=== PATIENT | female | born 1970 | race Caucasian/White ===

== ENCOUNTER 2020-01-01 12:10 | Inpatient (IN) ==
[2020-01-01] MEDS ORDERED: VANCOMYCIN PER PHARMACY IV ONE (13:02)
[2020-01-01] MEDS ORDERED: ONDANSETRON 4 MG/2 ML VIAL IV PRN ×4 (14:08→18:01)
[2020-01-01] MEDS ORDERED: traZODone HCL 50 MG TABLET PO PRN (14:08)
[2020-01-01] MEDS ORDERED: ZOLPIDEM 5 MG TABLET PO PRN (14:08)
[2020-01-01] MEDS ORDERED: ACETAMINOPHEN 325 MG TABLET PO PRN (14:08)
[2020-01-01] MEDS ORDERED: ALBUTEROL SULFATE 2.5 MG/3 ML NEBULIZER NEB PRN (14:08)
[2020-01-01] MEDS ORDERED: cefTRIAXone 2 GM in DEXTROSE 5% IN WATER 50 ML IV SCH (14:15)
[2020-01-01 14:46] LABS: Hematocrit 34.7 % (34.1-44.9); Hemoglobin 11.4 g/dL (11.2-15.7); Mean Cell Volume 86.3 fL (80.0-100.0); Mean Corpuscular HGB Conc 32.9 g/dL (31.0-36.0); Mean Platelet Volume 10.6 fL (7.4-10.4); Platelet Count 323 K/mcL (140-440); RBC 4.02 M/mcL (3.59-5.38); Red Cell Distribution Width 14.1 % (11.5-14.5); WBC 14.9 K/mcL (4.50-11.00)
[2020-01-01 14:53] LABS: Prothrombin Time 14.1 sec (11.9-14.5)
[2020-01-01] MEDS ORDERED: VANCOMYCIN 1,500 MG in 0.9 % SODIUM CHLORIDE 500 ML IV SCH (15:00)
[2020-01-01 15:05] LABS: HCG,Serum NEGATIVE <10 (<10 mIU/ml)
[2020-01-01 15:13] LABS: ALT/SGPT 10 U/l (0-40); AST/SGOT 14 U/l (0-37); Albumin 3.2 gm/dL (3.2-5.2); Albumin/Globulin Ratio 0.7 (1.0-2.3); Alkaline Phosphatase 99 U/L (39-117); Bilirubin,Total 0.9 mg/dL (0.0-1.0); Blood Urea Nitrogen 12 mg/dl (6-20); Calcium 8.8 mg/dl (8.6-10.4); Carbon Dioxide 21 mmol/L (22-30); Globulin 4.3 gm/dL (2.2-3.7); Glomerular Filtration Rate 114; Glucose 98 mg/dL (70-105)
[2020-01-01 15:19] LABS: Chloride 94 mmol/L (96-108)
[2020-01-01 15:28] LABS: Band Neutrophils % 4 % (0-10); Lymphocytes % 15 % (15-49); Monocytes % (Manual) 4 % (1-12); Platelet Estimate NORMAL (NORMAL); RBC Morphology NORMAL (NORMAL); Segmented Neutrophils % 77 % (38-78)
[2020-01-01 16:09] LABS: Appearance,Urine CLEAR; Bacteria,Urine 0 /hpf (0); Bilirubin,Urine NEG (NEG); Color,Urine YELLOW; Culture Indicated,Urine NO; Glucose,Urine (UA) NEGATIVE (NEG); Ketones,Urine 5/TR mg/dL (NEG); Leukocyte Esterase,Urine NEG /uL (NEG); Mucus,Urine FEW /hpf (0); Nitrate,Urine NEG (NEG); Protein,Urine 100 mg/dL (NEG); Specific Gravity,Urine 1.021 (1.000-1.035); Urine Blood >=1.0 mg/dL (<0.03); Urine RBC 97 /hpf (0-1); Urine Squamous Epithelial Cell 1 /hpf (0-4); Urine WBC 3 /hpf (0-4)
[2020-01-01 16:19] LABS: Amphetamine Screen,Urine SUSPECT POSITIVE (NONDETECTED); Barbiturate Screen,Urine NONE DETECTED (NONDETECTED); Benzodiazepines Screen,Urine NONE DETECTED (NONDETECTED); Cannabinoid Screen,Urine NONE DETECTED (NONDETECTED); Cocaine Screen,Urine NONE DETECTED (NONDETECTED); Opiate Screen,Urine NONE DETECTED (NONDETECTED); Oxycodone, Urine Screen NONE DETECTED (NONDETECTED); Phencyclidine Screen,Urine NONE DETECTED (NONDETECTED)
[2020-01-01] MEDS ORDERED: METOPROLOL TARTRATE 5 MG/5 ML VIAL IV ONE (16:31)
[2020-01-01] MEDS ORDERED: TRANEXAMIC ACID 1,000 MG/10 ML VIAL IV ONE ×2 (16:31→18:57)
[2020-01-01] MEDS ORDERED: DEXAMETHASONE 10 MG/ML VIAL IV ONE (16:31)
[2020-01-01] MEDS ORDERED: MIDAZOLAM 5 MG/5 ML VIAL IV ONE (16:31)
[2020-01-01] MEDS ORDERED: LIDOCAINE HCL/PF 100 MG/5 ML SYRINGE IV ONE (16:31)
[2020-01-01] MEDS ORDERED: ONDANSETRON 4 MG/2 ML VIAL IV ONE (16:31)
[2020-01-01] MEDS ORDERED: SUCCINYLCHOLINE 20 MG/ML ML IV ONE (16:31)
[2020-01-01] MEDS ORDERED: PROPOFOL 200 MG/20 ML VIAL IV ONE (16:31)
[2020-01-01] MEDS ORDERED: HYDROmorphone 1 MG/ML SYRINGE IV ONE (16:31)
[2020-01-01] MEDS ORDERED: fentaNYL 250 MCG/5 ML VIAL IV ONE (16:31)
[2020-01-01] MEDS ORDERED: KETAMINE 100 MG/ML ML IV ONE (16:31)
[2020-01-01] MEDS ORDERED: MEPERIDINE 25 MG/ML SYRINGE IV PRN (17:20)
[2020-01-01] MEDS ORDERED: NALOXONE HCL 0.4 MG/ML VIAL IV PRN (17:20)
[2020-01-01] MEDS ORDERED: PROMETHAZINE 25 MG/ML VIAL IV PRN (17:20)
[2020-01-01] MEDS ORDERED: ePHEDrine 50 MG/ML AMPUL IV PRN (17:20)
[2020-01-01] MEDS ORDERED: diphenhydrAMINE 50 MG/ML VIAL IV PRN (17:20)
[2020-01-01] MEDS ORDERED: IPRATROPIUM/ALBUTEROL 3 ML AMPUL.NEB NEB PRN (17:20)
[2020-01-01] MEDS ORDERED: FLUMAZENIL 0.1 MG/ML ML IV PRN (17:20)
[2020-01-01] MEDS ORDERED: METOPROLOL TARTRATE 5 MG/5 ML VIAL IV PRN (17:20)
[2020-01-01] MEDS ORDERED: ACETAMINOPHEN 1,000 MG/100 ML BOTTLE IV ONE (17:20)
[2020-01-01] MEDS ORDERED: ATROPINE SULFATE 0.4 MG/ML VIAL IV PRN (17:20)
[2020-01-01] MEDS ORDERED: HYDROmorphone 0.5 MG/0.5 ML SYRINGE IV PRN (17:20)
[2020-01-01] MEDS ORDERED: METHOCARBAMOL 1,000 MG/10 ML VIAL IV PRN (17:20)
[2020-01-01] MEDS ORDERED: fentaNYL 100 MCG/2 ML VIAL IV PRN (17:20)
[2020-01-01] MEDS ORDERED: LACTATED RINGERS 1,000 ML IV SCH (17:30)
[2020-01-01] MEDS ORDERED: IPRATROPIUM/ALBUTEROL 3 ML AMPUL.NEB NEB ONE (17:55)
[2020-01-01] MEDS ORDERED: MAGNESIUM HYDROXIDE 30 ML ORAL.SUSP PO PRN (18:01)
[2020-01-01] MEDS ORDERED: BENZOCAINE/MENTHOL 1 LOZENGE PO PRN (18:01)
[2020-01-01] MEDS ORDERED: FLEETS ADULT ENEMA PR PRN (18:01)
[2020-01-01] MEDS ORDERED: POLYETHYLENE GLYCOL 3350 17 GM PACKET PO PRN (18:01)
[2020-01-01] MEDS ORDERED: BUPIVACAINE 0.5% 50 ML VIAL IJ ONE (18:06)
[2020-01-01] MEDS ORDERED: TOBRAMYCIN SULFATE 1.2 GM VIAL TOPICAL ONE (18:06)
[2020-01-01] MEDS ORDERED: VANCOMYCIN 1 GM VIAL TOPICAL SCH (18:15)
[2020-01-01] MEDS ORDERED: GABAPENTIN 100 MG CAPSULE PO ONE ×2 (18:37→18:52)
[2020-01-01] MEDS ORDERED: LORazepam 2 MG/ML VIAL IV ONE (18:37)
[2020-01-01] MEDS ORDERED: ONDANSETRON 4 MG/2 ML VIAL ONE (18:37)
[2020-01-01] MEDS ORDERED: LORazepam 2 MG/ML VIAL ONE (18:39)
[2020-01-01] MEDS ORDERED: fentaNYL 100 MCG/2 ML VIAL IV ONE (18:40)
[2020-01-01] MEDS ORDERED: METHOCARBAMOL 1,000 MG/10 ML VIAL ONE (18:44)
[2020-01-01] MEDS: TRANEXAMIC ACID 1,000 MG/10 ML VIAL IV ONE ×2 (18:54→18:57)
[2020-01-01] MEDS: 0.9 % SODIUM CHLORIDE 1,000 ML IV SCH ×3 (19:47→22:46)
[2020-01-01] MEDS ORDERED: HYDROcodone/APAP 5/325MG TABLET PO ONE (21:12)
[2020-01-01] MEDS ORDERED: MELATONIN 3 MG TABLET PO ONE (21:12)
[2020-01-01] MEDS ORDERED: traZODone HCL 50 MG TABLET ONE (21:12)
--- NOTE | 2020-01-01 21:32 | Internal Med History&Physical ---
HPI History of Present Illness Patient information: Note initiated : 01/01/20 at 9:28 pm Service Date, if different from initiated Date: [] Patient: Lianet Jamison 49 y/o F admitted on 01/01/20 for Infected Left Knee. Chief Complaint: [] History of present illness: 49-year-old female with a history of bipolar disorder, chronic pain, tobacco dependence and osteoporosis status post knee replacement was brought to the hospital for septic arthritis of the left knee. Patient was evaluated at the clinic yesterday for swelling and redness of the left knee and joint aspiration was done and study showing evidence of septic arthritis. Orthopedic surgery planning to do a knee washout this afternoon and admitted her for potential IV antibiotics. Patient denied any features of sepsis no fever no chills. Patient was started on vancomycin and ceftriaxone during admission. Patient denied any history of cardiac disease or stroke or any cardiovascular events. She has history of bipolar disorder and takes her home medications. Constitutional Constitutional: Present chills, fatigue and weakness; Absent anorexia, excessive sweating, frequent falls and lethargy EENT Eyes: Absent discharge, floaters, irritation, loss of peripheral vision, loss of vision and photophobia Ears: Present as per HPI; Absent decreased hearing, ear pain and tinnitus Nose, mouth and throat: Absent change in voice, dizziness, epistaxis, mouth lesions and nasal discharge Cardiovascular Cardiovascular: Present leg edema; Absent acrocyanosis, chest pain with activity, diaphoresis, orthopnea, palpatations, pedal edema, radiating pain, slow heart rate and syncope Respiratory Respiratory: Present snoring; Absent cough, hemoptysis, dyspnea on exertion, chest congestion and pain with cough Gastrointestinal Gastrointestinal: Present heartburn; Absent abdominal pain, change in bowel habits, constipation and diarrhea Genitourinary Genitourinary: Absent change in urinary stream, difficulty voiding, dyspareunia, dysuria and genital lesions Musculoskeletal Musculoskeletal: Present as per HPI, abnormal gait, arthralgias, joint swelling, limited range of motion, myalgias and radiating pain into limb Neurological Neurological: Present abnormal gait; Absent abnormal movements, abnormal speech, burning sensations, confusion, disequilibrium and frequent falls Psychiatric Psychiatric: Present anxiety and mood swings; Absent confusion, depression, homicidal ideation, memory loss and suicidal ideation Endocrine Endocrine: Present fatigue; Absent cold intolerance, flushing, increase in ring/shoe/hat size and polyphagia PFSH PFSH Family History (Updated 01/01/20 @ 21:32 by Stefan Leal MD) Other Bipolar disorder Social History smoking status: Current every day smoker MEDS/ALLERGIES Home Medications and Allergies Home Medications Medication Instructions Recorded Confirmed Type escitalopram oxalate 20 mg PO DAILY 08/19/19 01/01/20 History lamotrigine 75 mg PO DAILY 08/19/19 01/01/20 History Allergies Allergy/AdvReac Type Severity Reaction Status Date / Time No Known Drug Allergies Allergy Unknown Verified 08/27/19 05:09 [NKDA] EXAM Constitutional Vitals: Temp Pulse Resp BP Pulse Ox 98.3 F 98 H 20 139/82 95 01/01/20 20:00 01/01/20 19:17 01/01/20 20:00 01/01/20 20:00 01/01/20 20:00 General appearance: cooperative, mild distress and obese Head Head exam: Present atraumatic, normal inspection and normocephalic Eye Eye exam: Present normal appearance; Absent EOMI, periorbital swelling and scleral icterus ENT ENT exam: Present normal exam, normal external ear exam and normal oropharynx Neck Neck exam: Present normal inspection; Absent lymphadenopathy and tenderness Respiratory Respiratory exam: Present CTAB; Absent accessory muscle use, decreased breath sounds, respiratory distress and wheezes Cardiovascular Cardiovascular exam: Present normal rate and rhythm; Absent bradycardia, gallop, +S3 and systolic murmur GI/Abdominal GI/Abdominal exam: Present soft and distended; Absent diminished bowel sounds, guarding and tenderness Extremities Exam Additional comments: Swelling and redness of the left knee with active and passive tenderness and range of motion is very limited other joints unremarkable Neurovascular intact Back Exam Back exam: Present normal inspection; Absent CVA tenderness (L), CVA tenderness (R), muscle spasm and tenderness Neurological Exam Neurological exam: Present alert, oriented X3 and reflexes normal; Absent motor sensory deficit Psychiatric Psychiatric exam: Present normal mood; Absent agitated, anxious, depressed, manic and suicidal ideation DATA Data Completed and Pending Labs on day of discharge: Labs from last 24 hours 01/01/20 01/01/20 01/01/20 15:30 15:30 13:59 WBC RBC Hgb Hct MCV MCH MCHC RDW Plt Count MPV Total Counted Seg Neutrophils % Band Neutrophils % Lymphocytes % Monocytes % (Manual) Platelet Estimate RBC Morphology PT INR Sodium Potassium Chloride Carbon Dioxide Anion Gap BUN Creatinine GFR Calculation Glucose Calcium Total Bilirubin AST ALT Alkaline Phosphatase Total Protein Albumin Globulin Albumin/Globulin Ratio HCG, Qual Urine Color Yellow Urine Appearance Clear Urine pH 7.0 Ur Specific [place] 1.021 Urine Protein 100 A Urine Glucose (UA) Negative Urine Ketones 5/tr A Urine Occult Blood >=1.0 A Urine Nitrate Neg Urine Bilirubin Neg Urine Urobilinogen 4.0 A Ur Leukocyte Esterase Neg Urine RBC 97 H Urine WBC 3 Ur Squamous Epith Cells 1 Urine Bacteria 0 Urine Mucus Few Ur Culture Indicated? No Urine Opiates Screen None detected Ur Opiates Confirm Not Reportable Ur Oxycodone Screen None detected Urine Methadone Screen None detected Ur Methadone Confirm Not Reportable Ur Barbiturates Screen None detected Ur Barbiturate Confirm Not Reportable Ur Phencyclidine Scrn None detected Urine PCP Confirm Not Reportable Ur Amphetamines Screen Suspect positive A U Amphetamines Confirm Not Reportable U Benzodiazepines Scrn None detected U Benzodiazepine Confm Not Reportable Urine Cocaine Screen None detected Urine Cocaine Confirm Not Reportable U Cannabinoids Confirm Not Reportable U Marijuana (THC) Screen None detected COVID-19 PCR Covid-19 negative 01/01/20 01/01/20 01/01/20 13:27 13:27 13:27 WBC 14.9 H RBC 4.02 Hgb 11.4 Hct 34.7 MCV 86.3 MCH 28.4 MCHC 32.9 RDW 14.1 Plt Count 323 MPV 10.6 H Total Counted 100 Seg Neutrophils % 77 Band Neutrophils % 4 Lymphocytes % 15 Monocytes % (Manual) 4 Platelet Estimate Normal RBC Morphology Normal PT INR Sodium 129 L TNP Potassium 3.3 TNP Chloride 94 L TNP Carbon Dioxide 21 L TNP Anion Gap 14.0 TNP BUN 12 TNP Creatinine 0.5 L TNP GFR Calculation 114 TNP Glucose 98 TNP Calcium 8.8 TNP Total Bilirubin 0.9 AST 14 ALT 10 Alkaline Phosphatase 99 Total Protein 7.5 Albumin 3.2 Globulin 4.3 H Albumin/Globulin Ratio 0.7 L HCG, Qual Negative <10 Urine Color Urine Appearance Urine pH Ur Specific [place] Urine Protein Urine Glucose (UA) Urine Ketones Urine Occult Blood Urine Nitrate Urine Bilirubin Urine Urobilinogen Ur Leukocyte Esterase Urine RBC Urine WBC Ur Squamous Epith Cells Urine Bacteria Urine Mucus Ur Culture Indicated? Urine Opiates Screen Ur Opiates Confirm Ur Oxycodone Screen Urine Methadone Screen Ur Methadone Confirm Ur Barbiturates Screen Ur Barbiturate Confirm Ur Phencyclidine Scrn Urine PCP Confirm Ur Amphetamines Screen U Amphetamines Confirm U Benzodiazepines Scrn U Benzodiazepine Confm Urine Cocaine Screen Urine Cocaine Confirm U Cannabinoids Confirm U Marijuana (THC) Screen COVID-19 PCR 01/01/20 13:27 WBC RBC Hgb Hct MCV MCH MCHC RDW Plt Count MPV Total Counted Seg Neutrophils % Band Neutrophils % Lymphocytes % Monocytes % (Manual) Platelet Estimate RBC Morphology PT 14.1 INR 1.0 Sodium Potassium Chloride Carbon Dioxide Anion Gap BUN Creatinine GFR Calculation Glucose Calcium Total Bilirubin AST ALT Alkaline Phosphatase Total Protein Albumin Globulin Albumin/Globulin Ratio HCG, Qual Urine Color Urine Appearance Urine pH Ur Specific [place] Urine Protein Urine Glucose (UA) Urine Ketones Urine Occult Blood Urine Nitrate Urine Bilirubin Urine Urobilinogen Ur Leukocyte Esterase Urine RBC Urine WBC Ur Squamous Epith Cells Urine Bacteria Urine Mucus Ur Culture Indicated? Urine Opiates Screen Ur Opiates Confirm Ur Oxycodone Screen Urine Methadone Screen Ur Methadone Confirm Ur Barbiturates Screen Ur Barbiturate Confirm Ur Phencyclidine Scrn Urine PCP Confirm Ur Amphetamines Screen U Amphetamines Confirm U Benzodiazepines Scrn U Benzodiazepine Confm Urine Cocaine Screen Urine Cocaine Confirm U Cannabinoids Confirm U Marijuana (THC) Screen COVID-19 PCR A/P Narrative A/P Narrative: Narrative: Septic arthritis-left knee Monoarthritis a week duration and fluid studies showing evidence of septic arthritis No features of sepsis Fluid culture pending Planning for knee washout this afternoon Started the patient on vancomycin pharmacy to dose Added ceftriaxone 2 g daily Further antibiotic duration and choice depends on culture Pain control per orthopedic Bipolar disorder Continue citalopram and lamotrigine home dose No evidence of acute psychosis or active depression Obesity Morbid obesity with a BMI of 46 DVT prophylaxis-subcu heparin starting tomorrow CODE STATUS-full code Expected length of stay-at least 2 midnights CPT code 85683 Time Spent With Patient Time: Total time spent is greater than 50% in coordination of care (as documented) at patient's floor/unit and/or counseling patient:
[2020-01-01] MEDS: 0.9 % SODIUM CHLORIDE 10 ML SYRINGE IV SCH ×2 (22:11)
[2020-01-01] MEDS: DOCUSATE SODIUM 100 MG CAPSULE PO SCH (22:13)
[2020-01-01] MEDS: ASPIRIN 81 MG TAB.CHEW PO SCH (22:13)
[2020-01-01] MEDS: SENNOSIDES 1 TABLET PO SCH ×2 (22:13)
[2020-01-01] MEDS: HYDROcodone/APAP 10/325MG TABLET PO PRN (22:16)
[2020-01-02] MEDS ORDERED: VANCOMYCIN 500 MG in 0.9 % SODIUM CHLORIDE 100 ML IV ONE
--- NOTE | 2020-01-02 03:44 | XRay Report ---
CLINICAL INFORMATION: L KNEE REPLACEMENT COMPARISON: Postoperative films 08/27/2019 FINDINGS: It appears the original left total knee prosthesis has been retained. Radiodense antibiotic beads are seen in the Hoffa's fat pad region, suprapatellar bursa and prepatellar soft tissues. No osseous abnormalities - no radiographic evidence for osteomyelitis. IMPRESSION: Antibiotic bead placement in in the anterior soft tissues Interpreted and Authenticated by: Zach Thompson 01/02/20
[2020-01-02] MEDS: HYDROcodone/APAP 10/325MG TABLET PO PRN ×5 (04:27→23:43)
[2020-01-02] MEDS: 0.9 % SODIUM CHLORIDE 10 ML SYRINGE IV SCH ×6 (04:40→20:52)
--- NOTE | 2020-01-02 06:42 | General Surgery Progress Note ---
SUBJECTIVE Subjective Patient information: Note initiated : 01/02/20 at 6:41 am Service Date, if different from initiated Date: [] Patient: Lianet Jamison 49 y/o F admitted on 01/01/20 for Infected Left Knee. Chief Complaint: [] Interval history: Narrative: marked improvement in pain Constitutional Vitals: Vital Signs Temp Pulse Resp BP Pulse Ox 97.4 F 80 14 119/71 93 01/02/20 03:05 01/02/20 05:25 01/02/20 03:05 01/02/20 03:05 01/02/20 05:25 Period Temp Pulse Resp BP Sys/Rodriguez Pulse Ox Last 24 Hr 97.4 F-100 F 55-107 14-22 113-169/58-86 90-100 Intake and Output 01/01/20 01/02/20 01/02/20 21:59 05:59 13:59 Intake Total 1740 150 360 Output Total 626 450 Balance 1114 150 -90 Weight 287 lb Intake & Output: Intake & Output 01/01/20 01/02/20 01/02/20 21:59 05:59 13:59 Intake Total 1740 150 360 Output Total 626 450 Balance 1114 150 -90 Weight 287 lb Intake: IV 100 50 Rocephin 2 gm In Dextrose 5% in 50 Water 50 ml @ 100 mls/hr IV DAILY [facility] Rx#:[id number] Oral 400 100 360 Clear Carbohydrate Drink 240 IV - Manual Only 1000 Output: Void Amount 475 450 # of times incontinent of urine 1 Estimated Blood Loss 150 Other: Meal Dinner Percent of Meal Consumed 100% Feeding Ability Independent Urine Appearance Cloudy Urine Color Dark Yellow Light Alessandra Urine Odor Normal A/P Narrative A/P Narrative: mobilize continue antibiotics Time Spent With Patient Time: Total time spent is greater than 50% in coordination of care (as documented) at patient's floor/unit and/or counseling patient:
[2020-01-02] MEDS ORDERED: VANCOMYCIN PER PHARMACY IV SCH (08:00)
[2020-01-02 08:47] LABS: ALT/SGPT 9 U/l (0-40); AST/SGOT 15 U/l (0-37); Albumin 2.7 gm/dL (3.2-5.2); Albumin/Globulin Ratio 0.6 (1.0-2.3); Alkaline Phosphatase 78 U/L (39-117); Bilirubin,Total 0.4 mg/dL (0.0-1.0); Blood Urea Nitrogen 19 mg/dl (6-20); Calcium 9.3 mg/dl (8.6-10.4); Carbon Dioxide 16 mmol/L (22-30); Chloride 97 mmol/L (96-108); Globulin 4.5 gm/dL (2.2-3.7); Glomerular Filtration Rate 107; Glucose 221 mg/dL (70-105)
[2020-01-02] MEDS: PANTOPRAZOLE 40 MG TABLET PO SCH (09:03)
[2020-01-02] MEDS: DOCUSATE SODIUM 100 MG CAPSULE PO SCH ×2 (09:05→20:50)
[2020-01-02] MEDS: 0.9 % SODIUM CHLORIDE 1,000 ML IV SCH ×2 (09:06→09:15)
[2020-01-02] MEDS: ASPIRIN 81 MG TAB.CHEW PO SCH ×2 (09:12→20:50)
[2020-01-02] MEDS: HEPARIN 5,000 UNIT/ML VIAL SQ SCH ×2 (09:13→20:50)
[2020-01-02 11:48] LABS: Basophils # (Auto) 0.02 K/mcL (0.00-0.30); Basophils % (Auto) 0.1 % (0.0-2.0); Eosinophils # (Auto) 0 K/mcL (0.00-0.70); Eosinophils % (Auto) 0 % (0.0-7.0); Granulocytes % (Auto) 90.9 % (38.0-78.0); Hematocrit 33.1 % (34.1-44.9); Hemoglobin 10.9 g/dL (11.2-15.7); Lymphocytes # (Auto) 0.88 K/mcL (1.50-4.80); Lymphocytes % (Auto) 6.4 % (15.5-49.0); Mean Corpuscular HGB Conc 32.9 g/dL (31.0-36.0); Monocytes # (Auto) 0.36 K/mcL (0.10-0.90); Monocytes % (Auto) 2.6 % (1.0-12.0); Platelet Count 325 K/mcL (140-440); RBC 3.85 M/mcL (3.59-5.38); Red Cell Distribution Width 14.2 % (11.5-14.5); WBC 13.8 K/mcL (4.50-11.00)
[2020-01-02] MEDS: lamoTRIgine 25 MG TABLET PO SCH (12:12)
[2020-01-02] MEDS: ESCITALOPRAM 20 MG TABLET PO SCH (12:13)
[2020-01-02 12:26] LABS: INR 1.1 (0.9-1.1); Prothrombin Time 14.6 sec (11.9-14.5)
[2020-01-02] MEDS: VANCOMYCIN 1,500 MG in 0.9 % SODIUM CHLORIDE 500 ML IV SCH ×2 (12:59→20:51)
--- NOTE | 2020-01-02 13:21 | Internal Med Progress Note ---
SUBJECTIVE Subjective Patient information: Note initiated : 01/02/20 at 1:20 pm Service Date, if different from initiated Date: [] Patient: Lianet Jamison 49 y/o F admitted on 01/01/20 for Infected Left Knee. Chief Complaint: [] 49-year-old female with a history of bipolar disorder, chronic pain, tobacco dependence and osteoporosis status post knee replacement was brought to the hospital for septic arthritis of the left knee. Patient was evaluated at the clinic yesterday for swelling and redness of the left knee and joint aspiration was done and study showing evidence of septic arthritis. Orthopedic surgery planning to do a knee washout this afternoon and admitted her for potential IV antibiotics. Patient denied any features of sepsis no fever no chills. Patient was started on vancomycin and ceftriaxone during admission. Patient denied any history of cardiac disease or stroke or any cardiovascular events. She has history of bipolar disorder and takes her home medications. 01/31 Patient underwent washout yesterday No further sepsis no fever no chills overnight Pain under control Continuing vancomycin and ceftriaxone pharmacy to dose Cultures are pending Orthopedic following the patient Patient was resumed her home medication lamotrigine and antidepressants Urine drug screen was positive for methamphetamine Review of system General no fever no chills no distress Respiratory-no shortness of breath no cough no sputum production Cardiac-no chest pain no palpitation no dizziness no syncope Abdomen-distended no pain no constipation no diarrhea Musculoskeletal-continued having pain with activities and but improved compared to yesterday Skin-no rash no itching Neuro-no focal neuro deficit, no seizure no headache Interval history: Narrative: Constitutional Vitals: Vital Signs Temp Pulse Resp BP Pulse Ox 97.6 F 82 16 115/67 95 01/02/20 11:56 01/02/20 11:56 01/02/20 11:56 01/02/20 11:56 01/02/20 11:56 Period Temp Pulse Resp BP Sys/Rodriguez Pulse Ox Last 24 Hr 97.4 F-99.1 F 55-107 14-22 113-169/65-86 90-100 Intake and Output 01/01/20 01/02/20 01/02/20 21:59 05:59 13:59 Intake Total 1740 150 860 Output Total 626 450 Balance 1114 150 410 Weight 287 lb Intake & Output: Intake & Output 01/01/20 01/02/20 01/02/20 21:59 05:59 13:59 Intake Total 1740 150 860 Output Total 626 450 Balance 1114 150 410 Weight 287 lb Intake: IV 100 50 Rocephin 2 gm In Dextrose 5% in 50 Water 50 ml @ 100 mls/hr IV DAILY [facility] Rx#:[id number] Oral 400 100 860 Clear Carbohydrate Drink 240 IV - Manual Only 1000 Output: Void Amount 475 450 # of times incontinent of urine 1 Estimated Blood Loss 150 Other: Meal Dinner Lunch Percent of Meal Consumed 100% 75% Feeding Ability Independent Independent Urine Appearance Cloudy Urine Color Dark Yellow Light Alessandra Urine Odor Normal General appearance: cooperative, mild distress and obese Head Head exam: Present atraumatic, normal inspection and normocephalic Eye Eye exam: Present EOMI; Absent periorbital swelling and scleral icterus ENT ENT exam: Present mucous membranes moist, normal exam and normal oropharynx Neck Neck exam: Present normal inspection; Absent lymphadenopathy and tenderness Respiratory Respiratory exam: Present normal respiratory exam; Absent accessory muscle use, respiratory distress and wheezes Cardiovascular Cardiovascular exam: Absent bradycardia, irregular rhythm, JVD, +S3 and tachycardia GI/Abdominal GI/Abdominal exam: Present normal bowel sounds, soft and distended Extremities Exam Additional comments: Left knee redness and swelling improved status post dressing No drainage Neurological Exam Neurological exam: Present alert, oriented X3 and reflexes normal; Absent motor sensory deficit Psychiatric Psychiatric exam: Absent agitated, anxious and depressed OBJ DATA Labs CBC & Chem 7: 01/02/20 10:00 01/02/20 06:38 Labs: Abnormal Lab Results 01/02/20 01/02/20 01/02/20 10:00 10:00 06:38 WBC 13.8 H Hgb 10.9 L Hct 33.1 L MPV 11.0 H Gran % 90.9 H Lymph % (Auto) 6.4 L Gran # 12.50 H Lymph # (Auto) 0.88 L PT 14.6 H Sodium 132 L Chloride Carbon Dioxide 16 L Anion Gap 19.0 H Creatinine Glucose 221 H Magnesium 2.6 H Albumin 2.7 L Globulin 4.5 H Albumin/Globulin Ratio 0.6 L Urine Protein Urine Ketones Urine Occult Blood Urine Urobilinogen Urine RBC Ur Amphetamines Screen 01/01/20 01/01/20 01/01/20 15:30 15:30 13:27 WBC Hgb Hct MPV Gran % Lymph % (Auto) Gran # Lymph # (Auto) PT Sodium 129 L Chloride 94 L Carbon Dioxide 21 L Anion Gap Creatinine 0.5 L Glucose Magnesium Albumin Globulin 4.3 H Albumin/Globulin Ratio 0.7 L Urine Protein 100 A Urine Ketones 5/tr A Urine Occult Blood >=1.0 A Urine Urobilinogen 4.0 A Urine RBC 97 H Ur Amphetamines Screen Suspect positive A 01/01/20 13:27 WBC 14.9 H Hgb Hct MPV 10.6 H Gran % Lymph % (Auto) Gran # Lymph # (Auto) PT Sodium Chloride Carbon Dioxide Anion Gap Creatinine Glucose Magnesium Albumin Globulin Albumin/Globulin Ratio Urine Protein Urine Ketones Urine Occult Blood Urine Urobilinogen Urine RBC Ur Amphetamines Screen Meds: Medications Acetaminophen (Tylenol) 650 mg PO Q6HP PRN; Protocol PRN Reason: Per Pain Protocol/Fever > 101 Hydrocodone Bitart/Acetaminophen ([place] 10/325mg) 0 tab PO Q4HP PRN; Protocol PRN Reason: Per Pain Protocol Last Admin: 01/02/20 13:12 Dose: 1 tab Documented by: Albuterol Sulfate (Ventolin) 2.5 mg NEB Q2HP PRN PRN Reason: Shortness Of Breath Aspirin (Aspirin) 81 mg PO BID [facility] Last Admin: 01/02/20 09:12 Dose: 81 mg Documented by: Docusate Sodium (Colace) 100 mg PO BID [facility] Last Admin: 01/02/20 09:05 Dose: Not Given Documented by: Escitalopram Oxalate (Lexapro) 20 mg PO DAILY [facility] Last Admin: 01/02/20 12:13 Dose: 20 mg Documented by: Heparin Sodium (Porcine) (Heparin) 5,000 unit SQ Q12 [facility] Last Admin: 01/02/20 09:13 Dose: 5,000 unit Documented by: Sodium Chloride (Sodium Chloride 0.9%) 1,000 mls @ 100 mls/hr IV .Q10H [facility] Last Admin: 01/02/20 09:15 Dose: Not Given Documented by: Sodium Chloride (Sodium Chloride 0.9%) 1,000 mls @ 75 mls/hr IV .[id number] [facility] Last Admin: 01/02/20 09:06 Dose: Not Given Documented by: Vancomycin HCl 1,500 mg/ (Sodium Chloride) 500 mls @ 333.3 mls/hr IV Q12H [facility] Last Admin: 01/02/20 12:59 Dose: 333.3 mls/hr Documented by: Ceftriaxone Sodium 2 gm/ (Dextrose) 50 mls @ 100 mls/hr IV Q24H [facility] Lamotrigine (Lamictal) 75 mg PO DAILY [facility] Last Admin: 01/02/20 12:12 Dose: 75 mg Documented by: Magnesium Hydroxide (Milk Of Magnesia) 30 ml PO BIDP PRN PRN Reason: Constipation Morphine Sulfate (Morphine) 0 mg IV Q1HP PRN; Protocol PRN Reason: Per Pain Protocol Ondansetron HCl (Zofran) 4 mg IV Q6HP PRN PRN Reason: Nausea And Vomiting Ondansetron HCl (Zofran) 4 mg IV Q4HP PRN; Protocol PRN Reason: Nausea And Vomiting Pantoprazole Sodium (Protonix) 40 mg PO QAMAC [facility] Last Admin: 01/02/20 09:03 Dose: 40 mg Documented by: Polyethylene Glycol (Miralax) 17 gm PO DAILYP PRN PRN Reason: Constipation Senna (Senokot) 2 tab PO [facility] Last Admin: 01/01/20 22:13 Dose: 2 tab Documented by: Senna (Senokot) 2 tab PO [facility] Last Admin: 01/01/20 22:13 Dose: Not Given Documented by: Sodium Biphosphate/Sodium Phosphate (Fleets Adult) 1 dose ME Q3-4DAYS PRN PRN Reason: Constipation Sodium Chloride (Saline Flush) 10 ml IV Q8 [facility] Last Admin: 01/02/20 13:09 Dose: 10 ml Documented by: Sodium Chloride (Saline Flush) 10 ml IV Q8 [facility] Last Admin: 01/02/20 13:09 Dose: Not Given Documented by: Throat Lozenges (Cepacol) 1 lozenge PO PRN PRN PRN Reason: Sore Throat Trazodone HCl (Desyrel) 50 mg PO HSP PRN PRN Reason: Insomnia Vancomycin HCl (Vancomycin Per Pharmacy) [address] [facility]; Protocol A/P Narrative A/P Narrative: Narrative: Septic arthritis-left knee status post washout 12/31 Left knee arthritis sudden onset-a week duration and fluid studies showing evidence of septic arthritis Fluid culture pending Vancomycin pharmacy to dose Added ceftriaxone 2 g daily Arthritis fluid culture pending Pain is controlled Bipolar disorder Continue citalopram and lamotrigine home dose No evidence of acute psychosis or active depression Obesity Morbid obesity with a BMI of 46 Probable recreational drug use Patient denied any recreational drug use but her methamphetamine urine screen was positive DVT prophylaxis-subcu heparin starting tomorrow CODE STATUS-full code Time Spent With Patient Time: Total time spent is greater than 50% in coordination of care (as documented) at patient's floor/unit and/or counseling patient:
[2020-01-02] MEDS: cefTRIAXone 2 GM in DEXTROSE 5% IN WATER 50 ML IV SCH (16:46)
[2020-01-02] MEDS: SENNOSIDES 1 TABLET PO SCH ×2 (20:50→20:51)
[2020-01-03] MEDS: 0.9 % SODIUM CHLORIDE 10 ML SYRINGE IV SCH ×3 (04:01→21:35)
[2020-01-03 06:52] LABS: Basophils # (Auto) 0.02 K/mcL (0.00-0.30); Basophils % (Auto) 0.2 % (0.0-2.0); Eosinophils # (Auto) 0.02 K/mcL (0.00-0.70); Eosinophils % (Auto) 0.2 % (0.0-7.0); Hematocrit 31.8 % (34.1-44.9); Hemoglobin 10.1 g/dL (11.2-15.7); Lymphocytes # (Auto) 1.66 K/mcL (1.50-4.80); Lymphocytes % (Auto) 14.1 % (15.5-49.0); Mean Cell Volume 89.3 fL (80.0-100.0); Mean Corpuscular HGB Conc 31.8 g/dL (31.0-36.0); Mean Platelet Volume 10.7 fL (7.4-10.4); Monocytes # (Auto) 0.53 K/mcL (0.10-0.90); Monocytes % (Auto) 4.5 % (1.0-12.0); Platelet Count 301 K/mcL (140-440); RBC 3.56 M/mcL (3.59-5.38); Red Cell Distribution Width 14.4 % (11.5-14.5); WBC 11.8 K/mcL (4.50-11.00)
[2020-01-03 07:19] LABS: ALT/SGPT 11 U/l (0-40); AST/SGOT 12 U/l (0-37); Albumin 2.9 gm/dL (3.2-5.2); Albumin/Globulin Ratio 0.8 (1.0-2.3); Alkaline Phosphatase 75 U/L (39-117); Bilirubin,Total < 0.2 mg/dL (0.0-1.0); Blood Urea Nitrogen 18 mg/dl (6-20); Calcium 9.6 mg/dl (8.6-10.4); Chloride 103 mmol/L (96-108); Globulin 3.8 gm/dL (2.2-3.7); Glomerular Filtration Rate 114; Glucose 106 mg/dL (70-105)
[2020-01-03 07:21] LABS: Carbon Dioxide 21 mmol/L (22-30)
[2020-01-03 07:41] LABS: INR 1.1 (0.9-1.1); Prothrombin Time 14.4 sec (11.9-14.5)
[2020-01-03] MEDS: PANTOPRAZOLE 40 MG TABLET PO SCH (08:32)
[2020-01-03] MEDS ORDERED: ESCITALOPRAM 20 MG TABLET PO SCH (09:00)
[2020-01-03] MEDS ORDERED: lamoTRIgine 25 MG TABLET PO SCH (09:00)
--- NOTE | 2020-01-03 09:18 | General Surgery Progress Note ---
SUBJECTIVE Subjective Patient information: Note initiated : 01/03/20 at 9:16 am Service Date, if different from initiated Date: [] Patient: Lianet Jamison 49 y/o F admitted on 01/01/20 for Infected Left Knee. Chief Complaint: [] Interval history: Narrative: Constitutional Vitals: Vital Signs Temp Pulse Resp BP Pulse Ox 98.1 F 65 18 119/69 96 01/03/20 09:02 01/03/20 09:02 01/03/20 09:02 01/03/20 09:02 01/03/20 09:02 Period Temp Pulse Resp BP Sys/Rodriguez Pulse Ox Last 24 Hr 97.5 F-98.8 F 56-82 15-18 106-128/55-77 95-96 Intake and Output 01/02/20 01/03/20 01/03/20 21:59 05:59 13:59 Intake Total 790 1650 Output Total 600 300 Balance 190 1350 Weight 279 lb 2 oz Intake & Output: Intake & Output 01/02/20 01/03/20 01/03/20 21:59 05:59 13:59 Intake Total 790 1650 Output Total 600 300 Balance 190 1350 Weight 279 lb 2 oz Intake: IV 550 500 Vancomycin 1,500 mg In Sodium 500 500 Chloride 0.9% 500 ml @ 333.3 mls/hr IV Q12H [facility] Rx#: [id number] Rocephin 2 gm In Dextrose 5% in 50 Water 50 ml @ 100 mls/hr IV Q24H [facility] Rx#:[id number] Oral 240 1150 Output: Void Amount 600 300 Other: Meal Dinner Percent of Meal Consumed 100% Urine Appearance Sediment Urine Color Dark Yellow A/P Narrative A/P Narrative: Narrative: Time Spent With Patient Time: Total time spent is greater than 50% in coordination of care (as documented) at patient's floor/unit and/or counseling patient:
[2020-01-03] MEDS: ASPIRIN 81 MG TAB.CHEW PO SCH ×2 (09:40→21:34)
[2020-01-03] MEDS: lamoTRIgine 25 MG TABLET PO SCH (09:41)
[2020-01-03] MEDS: ESCITALOPRAM 20 MG TABLET PO SCH (09:41)
[2020-01-03] MEDS: HYDROcodone/APAP 10/325MG TABLET PO PRN ×4 (09:42→23:52)
[2020-01-03] MEDS: DOCUSATE SODIUM 100 MG CAPSULE PO SCH ×2 (09:42→21:34)
[2020-01-03] MEDS: cefTRIAXone 2 GM in DEXTROSE 5% IN WATER 50 ML IV SCH (10:29)
[2020-01-03] MEDS: VANCOMYCIN 1,500 MG in 0.9 % SODIUM CHLORIDE 500 ML IV SCH ×2 (11:11→21:34)
[2020-01-03] MEDS: HEPARIN 5,000 UNIT/ML VIAL SQ SCH (18:33)
[2020-01-03] MEDS ORDERED: ASPIRIN 81 MG TAB.CHEW PO SCH (21:00)
[2020-01-03] MEDS: SENNOSIDES 1 TABLET PO SCH (21:35)
--- NOTE | 2020-01-03 23:16 | Internal Med Progress Note ---
SUBJECTIVE Subjective Patient information: Note initiated : 01/03/20 at 11:14 pm Service Date, if different from initiated Date: [] Patient: Lianet Jamison 49 y/o F admitted on 01/01/20 for Infected Left Knee. Chief Complaint: 49-year-old female with a history of bipolar disorder, chronic pain, tobacco dependence and osteoporosis status post knee replacement was brought to the hospital for septic arthritis of the left knee. Patient was evaluated at the clinic yesterday for swelling and redness of the left knee and joint aspiration was done and study showing evidence of septic arthritis. Orthopedic surgery planning to do a knee washout this afternoon and admitted her for potential IV a ntibiotics. Patient denied any features of sepsis no fever no chills. Patient was started on vancomycin and ceftriaxone during admission. Patient denied any history of cardiac disease or stroke or any cardiovascular events. She has history of bipolar disorder and takes her home medications. 01/01 Patient underwent washout yesterday No further sepsis no fever no chills overnight Pain under control Continuing vancomycin and ceftriaxone pharmacy to dose Cultures are pending Orthopedic following the patient Patient was resumed her home medication lamotrigine and antidepressants Urine drug screen was positive for methamphetamine 01/02 Blood cultures so far negative Discussed with orthopedic surgeon Anticoagulation changed to aspirin 81 twice daily Ordered PICC line placement for tomorrow Patient need long-term antibiotics Cultures have been pending Review of system General no fever no chills no distress Respiratory-no shortness of breath no cough no sputum production Cardiac-no chest pain no palpitation no dizziness no syncope Abdomen-distended no pain no constipation no diarrhea Musculoskeletal-continued having pain with activities and but improved compared to yesterday Skin-no rash no itching Neuro-no focal neuro deficit, no seizure no headache Interval history: Narrative: Constitutional Vitals: Vital Signs Temp Pulse Resp BP Pulse Ox 97.6 F 57 L 16 99/52 94 01/03/20 22:54 01/03/20 22:54 01/03/20 22:54 01/03/20 22:54 01/03/20 22:54 Period Temp Pulse Resp BP Sys/Rodriguez Pulse Ox Last 24 Hr 97.5 F-98.8 F 56-65 16-20 99-131/52-77 93-96 Intake and Output 01/03/20 01/03/20 01/04/20 13:59 21:59 05:59 Intake Total 775 540 Output Total 700 Balance 775 -160 Weight 284 lb Patient Weight 01/04/20 05:59 Weight 284 lb Intake & Output: Intake & Output 01/03/20 01/03/20 01/04/20 13:59 21:59 05:59 Intake Total 775 540 Output Total 700 Balance 775 -160 Weight 284 lb Intake: IV 550 Vancomycin 1,500 mg In Sodium 500 Chloride 0.9% 500 ml @ 333.3 mls/hr IV Q12H [facility] Rx#: [id number] Rocephin 2 gm In Dextrose 5% in 50 Water 50 ml @ 100 mls/hr IV Q24H [facility] Rx#:[id number] Oral 225 540 Output: Void Amount 700 Other: Meal Breakfast Dinner Percent of Meal Consumed 100% 85% Feeding Ability Independent Urine Color Bright Yellow Urine Odor Strong General appearance: no acute distress and obese Head Head exam: Present atraumatic, normal inspection and normocephalic Eye Eye exam: Absent EOMI, periorbital swelling and scleral icterus ENT ENT exam: Present normal exam and normal oropharynx Neck Neck exam: Present normal inspection; Absent lymphadenopathy and tenderness Respiratory Respiratory exam: Present CTAB; Absent accessory muscle use, respiratory distress and wheezes Cardiovascular Cardiovascular exam: Present normal rate and rhythm; Absent diastolic murmur, JVD, +S3 and +S4 GI/Abdominal GI/Abdominal exam: Present normal bowel sounds and distended; Absent tenderness Extremities Exam Additional comments: Knee joint status post dressing, swelling and redness significantly reduced Neurological Exam Neurological exam: Present alert, CN II-XII intact, oriented X3 and reflexes normal; Absent motor sensory deficit Psychiatric Psychiatric exam: Absent agitated, anxious and depressed OBJ DATA Labs CBC & Chem 7: 01/03/20 05:50 01/03/20 05:50 Labs: Abnormal Lab Results 01/03/20 01/03/20 01/02/20 05:50 05:50 10:00 WBC 11.8 H 13.8 H RBC 3.56 L Hgb 10.1 L 10.9 L Hct 31.8 L 33.1 L MPV 10.7 H 11.0 H Gran % 81.0 H 90.9 H Lymph % (Auto) 14.1 L 6.4 L Gran # 9.52 H 12.50 H Lymph # (Auto) 0.88 L PT Sodium Chloride Carbon Dioxide 21 L Anion Gap Creatinine 0.5 L Glucose 106 H Magnesium Albumin 2.9 L Globulin 3.8 H Albumin/Globulin Ratio 0.8 L Urine Protein Urine Ketones Urine Occult Blood Urine Urobilinogen Urine RBC Ur Amphetamines Screen 01/02/20 01/02/20 01/01/20 10:00 06:38 15:30 WBC RBC Hgb Hct MPV Gran % Lymph % (Auto) Gran # Lymph # (Auto) PT 14.6 H Sodium 132 L Chloride Carbon Dioxide 16 L Anion Gap 19.0 H Creatinine Glucose 221 H Magnesium 2.6 H Albumin 2.7 L Globulin 4.5 H Albumin/Globulin Ratio 0.6 L Urine Protein Urine Ketones Urine Occult Blood Urine Urobilinogen Urine RBC Ur Amphetamines Screen Suspect positive A 01/01/20 01/01/20 01/01/20 15:30 13:27 13:27 WBC 14.9 H RBC Hgb Hct MPV 10.6 H Gran % Lymph % (Auto) Gran # Lymph # (Auto) PT Sodium 129 L Chloride 94 L Carbon Dioxide 21 L Anion Gap Creatinine 0.5 L Glucose Magnesium Albumin Globulin 4.3 H Albumin/Globulin Ratio 0.7 L Urine Protein 100 A Urine Ketones 5/tr A Urine Occult Blood >=1.0 A Urine Urobilinogen 4.0 A Urine RBC 97 H Ur Amphetamines Screen Meds: Medications Acetaminophen (Tylenol) 650 mg PO Q6HP PRN; Protocol PRN Reason: Per Pain Protocol/Fever > 101 Hydrocodone Bitart/Acetaminophen ([place] 10/325mg) 0 tab PO Q4HP PRN; Protocol PRN Reason: Per Pain Protocol Last Admin: 01/03/20 19:25 Dose: 1 tab Documented by: Albuterol Sulfate (Ventolin) 2.5 mg NEB Q2HP PRN PRN Reason: Shortness Of Breath Aspirin (Aspirin) 81 mg PO BID [facility] Last Admin: 01/03/20 21:34 Dose: 81 mg Documented by: Docusate Sodium (Colace) 100 mg PO BID [facility] Last Admin: 01/03/20 21:34 Dose: Not Given Documented by: Escitalopram Oxalate (Lexapro) 20 mg PO DAILY [facility] Last Admin: 01/03/20 09:41 Dose: 20 mg Documented by: Vancomycin HCl 1,500 mg/ (Sodium Chloride) 500 mls @ 333.3 mls/hr IV Q12H [facility] Last Admin: 01/03/20 21:34 Dose: 333 mls/hr Documented by: Ceftriaxone Sodium 2 gm/ (Dextrose) 50 mls @ 100 mls/hr IV Q24H [facility] Last Infusion: 01/03/20 11:00 Dose: Infused Documented by: Lamotrigine (Lamictal) 75 mg PO DAILY [facility] Last Admin: 01/03/20 09:41 Dose: 75 mg Documented by: Magnesium Hydroxide (Milk Of Magnesia) 30 ml PO BIDP PRN PRN Reason: Constipation Morphine Sulfate (Morphine) 0 mg IV Q1HP PRN; Protocol PRN Reason: Per Pain Protocol Ondansetron HCl (Zofran) 4 mg IV Q6HP PRN PRN Reason: Nausea And Vomiting Ondansetron HCl (Zofran) 4 mg IV Q4HP PRN; Protocol PRN Reason: Nausea And Vomiting Last Admin: 01/03/20 09:37 Dose: 4 mg Documented by: Pantoprazole Sodium (Protonix) 40 mg PO QAMAC [facility] Last Admin: 01/03/20 08:32 Dose: 40 mg Documented by: Polyethylene Glycol (Miralax) 17 gm PO DAILYP PRN PRN Reason: Constipation Senna (Senokot) 2 tab PO HS [facility] Last Admin: 01/03/20 21:35 Dose: Not Given Documented by: Sodium Biphosphate/Sodium Phosphate (Fleets Adult) 1 dose LA Q3-4DAYS PRN PRN Reason: Constipation Sodium Chloride (Saline Flush) 10 ml IV Q8 [facility] Last Admin: 01/03/20 21:35 Dose: 10 ml Documented by: Throat Lozenges (Cepacol) 1 lozenge PO PRN PRN PRN Reason: Sore Throat Trazodone HCl (Desyrel) 50 mg PO HSP PRN PRN Reason: Insomnia Vancomycin HCl (Vancomycin Per Pharmacy) 1 order IV UD [facility]; Protocol A/P Narrative A/P Narrative: Narrative: Septic arthritis-left knee status post washout 12/31 Left knee total replacement in August-started noticing acute onset of arthritis sudden onset-a week duration and fluid studies showing evidence of septic arthritis Fluid culture showing evidence of MSSA Vancomycin pharmacy to dose and ceftriaxone 2 g daily We will get infectious disease opinion for the antibiotic duration and choice Blood cultures so far negative and ordered PICC line placement for tomorrow Pain is controlled Discussed with the orthopedic surgeon Dr. Casarez and anticoagulation changed to aspirin 81 mg twice daily Bipolar disorder Continue citalopram and lamotrigine home dose No evidence of acute psychosis or active depression Obesity Morbid obesity with a BMI of 46 Probable recreational drug use Patient denied any recreational drug use but her methamphetamine urine screen was positive DVT prophylaxis-subcu heparin starting tomorrow CODE STATUS-full code Time Spent With Patient Time: Total time spent is greater than 50% in coordination of care (as documented) at patient's floor/unit and/or counseling patient:
[2020-01-04] MEDS: 0.9 % SODIUM CHLORIDE 10 ML SYRINGE IV SCH ×2 (04:47→13:48)
[2020-01-04] MEDS: HYDROcodone/APAP 10/325MG TABLET PO PRN ×3 (04:47→16:22)
[2020-01-04 06:55] LABS: Basophils # (Auto) 0.06 K/mcL (0.00-0.30); Basophils % (Auto) 0.7 % (0.0-2.0); Eosinophils # (Auto) 0.14 K/mcL (0.00-0.70); Eosinophils % (Auto) 1.5 % (0.0-7.0); Granulocytes % (Auto) 65.8 % (38.0-78.0); Hematocrit 32.6 % (34.1-44.9); Hemoglobin 10.1 g/dL (11.2-15.7); Lymphocytes # (Auto) 2.46 K/mcL (1.50-4.80); Lymphocytes % (Auto) 26.9 % (15.5-49.0); Mean Cell Volume 89.6 fL (80.0-100.0); Mean Platelet Volume 11.3 fL (7.4-10.4); Monocytes # (Auto) 0.47 K/mcL (0.10-0.90); Monocytes % (Auto) 5.1 % (1.0-12.0); Platelet Count 318 K/mcL (140-440); RBC 3.64 M/mcL (3.59-5.38); Red Cell Distribution Width 14.7 % (11.5-14.5); WBC 9.1 K/mcL (4.50-11.00)
[2020-01-04 06:58] LABS: ALT/SGPT 10 U/l (0-40); AST/SGOT 13 U/l (0-37); Albumin 2.8 gm/dL (3.2-5.2); Albumin/Globulin Ratio 0.8 (1.0-2.3); Alkaline Phosphatase 71 U/L (39-117); Bilirubin,Total 0.2 mg/dL (0.0-1.0); Calcium 9.1 mg/dl (8.6-10.4); Carbon Dioxide 23 mmol/L (22-30); Chloride 101 mmol/L (96-108); Globulin 3.7 gm/dL (2.2-3.7); Glomerular Filtration Rate 114; Glucose 76 mg/dL (70-105)
[2020-01-04 07:08] LABS: Blood Urea Nitrogen 26 mg/dl (6-20)
--- NOTE | 2020-01-04 07:12 | Discharge Summary ---
Discharge Provider Provider Patient information: Note initiated : 01/04/20 at 7:08 am Service Date, if different from initiated Date: [] Patient: Lianet Jamison 49 y/o F admitted on 01/01/20 for Infected Left Knee. Chief Complaint: [] Date of admission: 01/01/20 12:48 Consults: 01/01/20 13:06 Consult to Physician [CONS] Routine Comment: Consulting Provider: Stefan Leal Reason For Exam: Physician to Consult 01/01/20 13:11 Consult to Infectious Disease [CONS] Routine Comment: Consulting Provider: Zack Baird Reason For Exam: Physician to Consult COURSE Time Spent with Patient Time attestation: Total time 30spent providing and/or coordinating discharge services:infected left knee, hematogenous. From abdominal skin, most likely. D/c home later today on IV antibiotics and with Physical therapy. Discharge Instructions - TKA Patient Instructions Total Knee Protocol: For Total Knee: Start ROM KEMI with stationary bike or rocking chair. Work on gaining full extension of knee. Posterior dislocation precautions provided. Hip abductor strengthening and gait training instructions provided. Apply Cryocuff as instructed. Discharge Plan Patient/Caregiver Discharge Instructions Activity: ambulate only with your walker Diet: Consistent Carbohydrate Prescriptions: New aspirin [aspirin] 325 MG tablet,delayed release (DR/EC) 81 mg PO BID Qty: 56 RF: 0 No Action lamotrigine 25 MG tablet 75 mg PO DAILY RF: 0 escitalopram oxalate 20 MG tablet 20 mg PO DAILY RF: 0 Other Ambulatory Orders: Physical Therapy DC - TKA (Routine) Location: None Selected Ordered By: Migue Woods Toilet Riser Discharge Order (ONCE) Location: None Selected Ordered By: Migue Woods Walker (ONCE) Location: None Selected Ordered By: Migue Woods Follow Up Plan Follow up with: Zack Baird MD [Physician] - 01/06/20 Migue Woods MD [Physician] - 01/13/20 Rehab Potential: Fair I certify that the patient requires SNF services: No Overall status at discharge: patient is not back to baseline Pending Pending Pending: Resuscitation Status Full Code Diet Regular Diet Start SatDec 31 Dinner Hydrocodone Bitart/Acetaminophen ([place] 10/325mg) 0 tab PO Q4HP PRN; Protocol PRN Reason: Per Pain Protocol Last Admin: 01/04/20 04:47 Dose: 1 tab Documented by: Admin: 01/03/20 23:52 Dose: 1 tab Documented by: Admin: 01/03/20 19:25 Dose: 1 tab Documented by: Admin: 01/03/20 13:52 Dose: 1 tab Documented by: Admin: 01/03/20 09:42 Dose: 1 tab Documented by: Admin: 01/02/20 23:43 Dose: 1 tab Documented by: Admin: 01/02/20 18:42 Dose: 1 tab Documented by: Admin: 01/02/20 13:12 Dose: 1 tab Documented by: Admin: 01/02/20 09:12 Dose: 1 tab Documented by: Admin: 01/02/20 04:27 Dose: 1 tab Documented by: Admin: 01/01/20 22:16 Dose: 1 tab Documented by: EITAN Aspirin (Aspirin) 81 mg PO BID [facility] Admin: 01/03/20 21:34 Dose: 81 mg Documented by: Admin: 01/03/20 09:40 Dose: 81 mg Documented by: Admin: 01/02/20 20:50 Dose: 81 mg Documented by: Admin: 01/02/20 09:12 Dose: 81 mg Documented by: Admin: 01/01/20 22:13 Dose: 81 mg Documented by: EITAN Docusate Sodium (Colace) 100 mg PO BID [facility] Admin: 01/03/20 21:34 Dose: Not Given Documented by: Admin: 01/03/20 09:42 Dose: Not Given Documented by: Admin: 01/02/20 20:50 Dose: Not Given Documented by: Admin: 01/02/20 09:05 Dose: Not Given Documented by: Admin: 01/01/20 22:13 Dose: 100 mg Documented by: EITAN Escitalopram Oxalate (Lexapro) 20 mg PO DAILY [facility] Admin: 01/03/20 09:41 Dose: 20 mg Documented by: Admin: 01/02/20 12:13 Dose: 20 mg Documented by: ASHISH Vancomycin HCl 1,500 mg/ (Sodium Chloride) 500 mls @ 333.3 mls/hr IV Q12H [facility] Last Infusion: 01/03/20 23:15 Dose: 0 mls/hr Documented by: Admin: 01/03/20 21:34 Dose: 333 mls/hr Documented by: Infusion: 01/03/20 12:50 Dose: 0 mls/hr Documented by: Admin: 01/03/20 11:11 Dose: 333 mls/hr Documented by: Infusion: 01/02/20 22:30 Dose: 0 mls/hr Documented by: Admin: 01/02/20 20:51 Dose: 333 mls/hr Documented by: Infusion: 01/02/20 14:35 Dose: 0 mls/hr Documented by: Admin: 01/02/20 12:59 Dose: 333.3 mls/hr Documented by: ASHISH Ceftriaxone Sodium 2 gm/ (Dextrose) 50 mls @ 100 mls/hr IV Q24H [facility] Last Infusion: 01/03/20 11:00 Dose: 0 mls/hr Documented by: Admin: 01/03/20 10:29 Dose: 100 mls/hr Documented by: Infusion: 01/02/20 17:20 Dose: 0 mls/hr Documented by: Admin: 01/02/20 16:46 Dose: 100 mls/hr Documented by: NICKIE Lamotrigine (Lamictal) 75 mg PO DAILY [facility] Last Admin: 01/03/20 09:41 Dose: 75 mg Documented by: Admin: 01/02/20 12:12 Dose: 75 mg Documented by: ASHISH Ondansetron HCl (Zofran) 4 mg IV Q4HP PRN; Protocol PRN Reason: Nausea And Vomiting Last Admin: 01/03/20 09:37 Dose: 4 mg Documented by: ASHISH Pantoprazole Sodium (Protonix) 40 mg PO QAMAC [facility] Last Admin: 01/03/20 08:32 Dose: 40 mg Documented by: Admin: 01/02/20 09:03 Dose: 40 mg Documented by: ASHISH Senna (Senokot) 2 tab PO HS [facility] Last Admin: 01/03/20 21:35 Dose: Not Given Documented by: Admin: 01/02/20 20:50 Dose: Not Given Documented by: Admin: 01/01/20 22:13 Dose: 2 tab Documented by: EITAN Sodium Chloride (Saline Flush) 10 ml IV Q8 [facility] Last Admin: 01/04/20 04:47 Dose: 10 ml Documented by: Admin: 01/03/20 21:35 Dose: 10 ml Documented by: Admin: 01/03/20 13:00 Dose: 10 ml Documented by: Admin: 01/03/20 04:01 Dose: 10 ml Documented by: Admin: 01/02/20 20:52 Dose: 10 ml Documented by: Admin: 01/02/20 13:09 Dose: 10 ml Documented by: Admin: 01/02/20 04:40 Dose: Not Given Documented by: Admin: 01/01/20 22:11 Dose: Not Given Documented by: EITAN Shift Summary 01/04/20 02:52 Shift Summary by Vanessa Sal&Ox4, up to Bathroom with 1 assist utilizing FWW/GB. VSS on RA, afebrile this shift. Patient slept well during the night. IV to left hand SL - Vanco & Rocephin. ESTELA wrap to left knee is CDI, on CPM for several hours during the night. [place] 1 tab x2 this shift. Scattered scabs to bilateral breasts and abdomen - hx of depression/anxiety/bipolar/schizophrenia. 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 Tox screen was positive for meth. 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 Will update at bedside with verbal report. Initialized on 01/04/20 02:52 - END OF NOTE
[2020-01-04] MEDS: PANTOPRAZOLE 40 MG TABLET PO SCH (07:49)
--- NOTE | 2020-01-04 08:13 | Operative Note ---
DATE OF OPERATION: 01/01/2020 PREOPERATIVE DIAGNOSIS: Hematogenous infection, left knee. POSTOPERATIVE DIAGNOSIS: Hematogenous infection, left knee. OPERATION: Exchange of the polyethylene and irrigation and debridement, left knee. SURGEON: Migue Woods M.D. HOME ASSESSMENT NURSE: Wild Gil PA-C. The PA's assistance was required for the safe and efficient completion of the entire case. This provider's expertise and technical skill were required throughout the case. The PA assisted with preoperative coordination, intraoperative retraction, wound closure, dressing and splint application, as well as postoperative documentation and care coordination. ANESTHESIA: General done by Moni Ngo CRNA. INDICATION FOR SURGERY: This is a 49-year-old female 4 months status post successful left knee replacement who has had 3 to 4 days of worsening hip pain. Earlier this week, she had a traumatic personal experience with her family and has been picking scabs on her abdominal skin, resulting in abscesses of the skin. She started having a fever in the last day or so. The knee was aspirated yesterday and was positive for infection by white count and by culture. Two approaches to this were discussed with her, including one-stage revision or two, and she opted for a one-stage revision with placement of antibiotic beads. SUMMARY OF PROCEDURE: General anesthesia was attained. The left leg was prepped and draped. A thigh-level tourniquet was put up. The patient's previous incision was reopened. This was taken down sharply to the quadriceps and medial retinaculum. There was no obvious infection in the subcutaneous tissue. There was purulence below the quadriceps and medial retinaculum which were split. The tibial insert was removed. A synovectomy was done throughout the knee. The knee was irrigated with 9 liters of lactated Ringer's. Retrials were done. The patient originally had a 9 mm insert. There was some mild medial instability and I, therefore, converted the insert to an 11 mm insert. The wound was then copiously irrigated again, and the quadriceps and medial retinaculum were closed with two running sutures of Stratafix. The subcutaneous tissue was closed with buried 2-0 Monocryl. The skin was closed with simple sutures of 2-0 nylon. A sterile compressive dressing was applied. The sponge and needle count was correct. The patient tolerated the procedure well and was taken to the recovery room in stable condition. TJF:newton Job ID: [id number] Doc ID: [id number] Migue Woods MD
[2020-01-04] MEDS ORDERED: 0.9 % SODIUM CHLORIDE 10 ML SYRINGE IV PRN (09:27)
[2020-01-04] MEDS: ASPIRIN 81 MG TAB.CHEW PO SCH (09:43)
[2020-01-04] MEDS: DOCUSATE SODIUM 100 MG CAPSULE PO SCH (09:43)
[2020-01-04] MEDS: ESCITALOPRAM 20 MG TABLET PO SCH (09:44)
[2020-01-04] MEDS: lamoTRIgine 25 MG TABLET PO SCH (09:45)
[2020-01-04] MEDS: cefTRIAXone 2 GM in DEXTROSE 5% IN WATER 50 ML IV SCH (09:49)
[2020-01-04] MEDS: VANCOMYCIN 1,500 MG in 0.9 % SODIUM CHLORIDE 500 ML IV SCH (10:33)
--- NOTE | 2020-01-04 15:45 | XRay Report ---
HISTORY: PICC line insertion FINDINGS: A PICC line has been placed into the left arm. It passes through the left subclavian vein and superior vena cava into the right atrium of the heart. It extends roughly 4 cm into the right atrium. There is no pneumothorax, pleural effusion or widening of the mediastinum. The heart is mildly enlarged but magnified by portable technique. The lateral aspect of the right chest wall is outside of the field of view due to patient positioning. IMPRESSION: PICC line positioned in the right atrium of the heart. Nursing was called with the report IMPRESSION: Interpreted and Authenticated by: Rodger Smith 01/04/20
[2020-01-04] MEDS ORDERED: 0.9 % SODIUM CHLORIDE 10 ML SYRINGE IV SCH (21:00)
--- NOTE | 2020-01-04 22:35 | Internal Med Progress Note ---
SUBJECTIVE Subjective Patient information: Note initiated : 01/04/20 at 10:33 pm Service Date, if different from initiated Date: [] Patient: Lianet Jamison 49 y/o F admitted on 01/01/20 for Infected Left Knee. Chief Complaint: [] 49-year-old female with a history of bipolar disorder, chronic pain, tobacco dependence and osteoporosis status post knee replacement was brought to the hospital for septic arthritis of the left knee. Patient was evaluated at the clinic yesterday for swelling and redness of the left knee and joint aspiration was done and study showing evidence of septic arthritis. Orthopedic surgery planning to do a knee washout this afternoon and admitted her for potential IV antibiotics. Patient denied any features of sepsis no fever no chills. Patient was started on vancomycin and ceftriaxone during admission. Patient denied any history of cardiac disease or stroke or any cardiovascular events. She has history of bipolar disorder and takes her home medications. 01/01 Patient underwent washout yesterday No further sepsis no fever no chills overnight Pain under control Continuing vancomycin and ceftriaxone pharmacy to dose Cultures are pending Orthopedic following the patient Patient was resumed her home medication lamotrigine and antidepressants Urine drug screen was positive for methamphetamine 01/02 Blood cultures so far negative Discussed with orthopedic surgeon Anticoagulation changed to aspirin 81 twice daily Ordered PICC line placement for tomorrow Patient need long-term antibiotics Cultures have been pending 01/03 Patient's culture came back MSSA Blood culture has been negative PICC line ordered Discussed with orthopedic and infectious disease specialist and recommended patient to be started on cefazolin 2 g every 8 hourly and rifampin 600 mg daily Patient would like to have antibiotics set up at [place] and case management and nursing arrange for follow-up Patient needs to follow-up with orthopedic surgeon and infectious disease in a week time Review of system General no fever no chills no distress Respiratory-no shortness of breath no cough no sputum production Cardiac-no chest pain no palpitation no dizziness no syncope Abdomen-distended no pain no constipation no diarrhea Musculoskeletal-continued having pain with activities and but improved compared to yesterday Skin-no rash no itching Neuro-no focal neuro deficit, no seizure no headache Interval history: Narrative: Constitutional Vitals: Vital Signs Temp Pulse Resp BP Pulse Ox 98.6 F 73 22 129/73 95 01/04/20 17:09 01/04/20 17:09 01/04/20 17:09 01/04/20 17:09 01/04/20 17:09 Period Temp Pulse Resp BP Sys/Rodriguez Pulse Ox Last 24 Hr 97.6 F-98.6 F 57-73 16-22 99-135/52-81 94-98 Intake and Output 01/04/20 01/04/20 01/05/20 13:59 21:59 05:59 Intake Total 670 840 Output Total 251 1 Balance 419 839 Weight 284 lb Patient Weight 01/05/20 05:59 Weight 284 lb Intake & Output: Intake & Output 01/04/20 01/04/20 01/05/20 13:59 21:59 05:59 Intake Total 670 840 Output Total 251 1 Balance 419 839 Weight 284 lb Intake: IV 550 Vancomycin 1,500 mg In Sodium 500 Chloride 0.9% 500 ml @ 333.3 mls/hr IV Q12H ANNA Rx#: [id number] Rocephin 2 gm In Dextrose 5% in 50 Water 50 ml @ 100 mls/hr IV Q24H ANNA Rx#:[id number] Oral 120 840 Output: Void Amount 250 # of times incontinent of urine 1 1 Other: Meal Breakfast Lunch Percent of Meal Consumed 100% 75% Feeding Ability Assist with Tray Set Up Assist with Tray Set Up Urine Appearance Clear Urine Color Straw Urine Odor Normal # Voids 1 1 General appearance: cooperative and no acute distress Head Head exam: Present atraumatic, normal inspection and normocephalic Eye Eye exam: Present EOMI; Absent periorbital swelling and scleral icterus Neck Neck exam: Present normal inspection; Absent lymphadenopathy and tenderness Respiratory Respiratory exam: Present normal respiratory exam; Absent accessory muscle use and respiratory distress Cardiovascular Cardiovascular exam: Absent bradycardia, JVD, +S3 and tachycardia GI/Abdominal GI/Abdominal exam: Present normal bowel sounds, soft and distended Neurological Exam Neurological exam: Present alert, oriented X3 and reflexes normal; Absent motor sensory deficit Psychiatric Psychiatric exam: Absent agitated, anxious and depressed OBJ DATA Labs CBC & Chem 7: 01/04/20 05:32 01/04/20 05:32 Labs: Abnormal Lab Results 01/04/20 01/04/20 01/03/20 05:32 05:32 05:50 WBC RBC Hgb 10.1 L Hct 32.6 L RDW 14.7 H MPV 11.3 H Gran % Lymph % (Auto) Gran # Lymph # (Auto) PT Sodium Carbon Dioxide 21 L Anion Gap BUN 26 H Creatinine 0.5 L 0.5 L Glucose 106 H Magnesium Albumin 2.8 L 2.9 L Globulin 3.8 H Albumin/Globulin Ratio 0.8 L 0.8 L 01/03/20 01/02/20 01/02/20 05:50 10:00 10:00 WBC 11.8 H 13.8 H RBC 3.56 L Hgb 10.1 L 10.9 L Hct 31.8 L 33.1 L RDW MPV 10.7 H 11.0 H Gran % 81.0 H 90.9 H Lymph % (Auto) 14.1 L 6.4 L Gran # 9.52 H 12.50 H Lymph # (Auto) 0.88 L PT 14.6 H Sodium Carbon Dioxide Anion Gap BUN Creatinine Glucose Magnesium Albumin Globulin Albumin/Globulin Ratio 01/02/20 06:38 WBC RBC Hgb Hct RDW MPV Gran % Lymph % (Auto) Gran # Lymph # (Auto) PT Sodium 132 L Carbon Dioxide 16 L Anion Gap 19.0 H BUN Creatinine Glucose 221 H Magnesium 2.6 H Albumin 2.7 L Globulin 4.5 H Albumin/Globulin Ratio 0.6 L A/P Narrative A/P Narrative: Narrative: Septic arthritis-left knee status post washout 12/31 MSSA Left knee total replacement in August-started noticing acute onset of arthritis sudden onset-a week duration and fluid studies showing evidence of septic arthritis Underwent washout and no evidence of prosthetic involvement no sinus tract Fluid culture showing evidence of MSSA During admission patient was started on vancomycin pharmacy to dose and ceftriaxone 2 g daily Discussed with infectious disease specialist and recommended antibiotics changed to cefazolin 2 g every 8 hourly and rifampin 600 daily Patient needs to follow-up with infectious disease on January 05 Blood cultures so far negative and ordered PICC line placement for tomorrow Pain is controlled Discussed with the orthopedic surgeon Dr. Woods and anticoagulation changed to aspirin 81 mg twice daily Bipolar disorder Continue citalopram and lamotrigine home dose No evidence of acute psychosis or active depression Obesity Morbid obesity with a BMI of 46 Probable recreational drug use Patient denied any recreational drug use but her methamphetamine urine screen was positive DVT prophylaxis-subcu heparin starting tomorrow CODE STATUS-full code Time Spent With Patient Time: Total time spent is greater than 50% in coordination of care (as documented) at patient's floor/unit and/or counseling patient:
== END 2020-01-04 17:55 | disposition home or self-care (01) | DRG 486 ==
LOC: MEDSUR 12:48
PROVIDERS: ADMIT Orthopaedic Surgery Foot and Ankle Surgery; ATTEND Orthopaedic Surgery Foot and Ankle Surgery